=== PATIENT | female | born 1985 | race Caucasian/White ===

== ENCOUNTER 2017-11-25 23:51 | Emergency (ER) | payer OTHER ==
[~2017-11-25] VITALS: Ht 149.9 cm; Wt 163.3 kg
[~2017-11-25 23:51] MED LIST: ALBU3IS INH; ALBU4; ALBU90OI INH; Albuterol17 G1 INH; BENZ100A PO; Bactrim Ds Tab1 EACH PO; FLUSAL2505 INH; Flovent Diskus50 MCG INH; IPRAIS NEB; LORA2 PO; METPRE4DP PO; NASAL SPRAY EXT30 ML NS; Nasonex17 GM; PRED10 PO; Prednisone10 MG PO; Prednisone20 MG PO; Prilosec20 MG PO; Prozac20 MG PO; SPACE CHAMBER1 EACH MC; TOPI25 PO; TRAZ50 PO; Zithromax250 MG PO; Zofran8 MG PO
[2017-11-26] MEDS ORDERED: ALBU90OI61 INH (00:23)
[2017-11-26] MEDS ORDERED: Cheratussin AC118 ML PO (00:34)
[2017-11-26] MEDS ORDERED: Augmentin 875-1 EACH PO (00:34)
[2017-11-26] MEDS ORDERED: PSEU120ER PO (00:34)
[2017-11-26] MEDS ORDERED: Mucinex600 MG PO (00:37)
[2017-11-26] MEDS ORDERED: Catapres0.1 MG PO (00:37)
[2017-11-26] MEDS ORDERED: Prednisone20 MG PO (00:38)
== END 2017-11-26 01:05 | disposition home or self-care (01) ==
LOC: ER 23:51
DX: J32.9 Chronic sinusitis, unspecified (principal); J98.4 Other disorders of lung; I10 Essential (primary) hypertension; F32.9 Major depressive disorder, single episode, unspecified; F41.9 Anxiety disorder, unspecified; Z88.8 Allergy status to other drugs, medicaments and biological substances; Z79.899 Other long term (current) drug therapy
CPT/HCPCS: 99283

== ENCOUNTER 2017-11-29 10:19 | Emergency (ER) | payer OTHER ==
[~2017-11-29] VITALS: Ht 149.9 cm; Wt 159.2 kg
[~2017-11-29 10:19] MED LIST changes: +ALBU90OI61 INH; +Augmentin 875-1 EACH PO; +Catapres0.1 MG PO; +Cheratussin AC118 ML PO; +Mucinex600 MG PO; +PSEU120ER PO
== END 2017-11-29 14:06 | disposition home or self-care (01) ==
LOC: ER 10:19
DX: J45.901 Unspecified asthma with (acute) exacerbation (principal); F32.9 Major depressive disorder, single episode, unspecified; F41.9 Anxiety disorder, unspecified; Z88.8 Allergy status to other drugs, medicaments and biological substances; Z79.899 Other long term (current) drug therapy; Z79.51 Long term (current) use of inhaled steroids; Z59.0 Homelessness
CPT/HCPCS: 94640; 99285-25

== ENCOUNTER 2018-07-31 23:19 | Emergency (ER) | payer OTHER | END 2018-08-01 00:10 | disposition left against medical advice (07) | LOC: ER 23:19 | DX: Z53.21 Procedure and treatment not carried out due to patient leaving prior to being seen by health care provider (principal); M54.5 Low back pain; M25.561 Pain in right knee ==

== ENCOUNTER → 2018-08-28 | Outpatient (CLI) | payer OTHER | END | disposition home or self-care (01) | LOC: LAB EV 14:58 → LAB SHORT 14:58 | DX: J02.9 Acute pharyngitis, unspecified (principal) | CPT/HCPCS: 87070 ==